=== PATIENT | female | born 1960 | race Caucasian/White ===

== ENCOUNTER 2017-01-29 08:43 | Day surgery (SDC) | payer MEDICAID ==
[2015-09-26 17:06] VITALS: BMI 34.7
[2017-01-29] MEDS ORDERED: Lactated Ringer's 1,000 ML IV ONE (09:17)
[2017-01-29] MEDS ORDERED: Propofol 10 mg/ml Inj (20 ML) ONE (12:12)
[2017-01-29] MEDS ORDERED: Lidocaine 2% MPF (5 ml) Inj ONE (12:13)
[2017-01-29 12:42] VITALS: TEMP 97
[2017-01-29 12:57] VITALS: BP 123/75; PULSE 66; RESP 13; O2SAT 100
== END 2017-01-29 12:58 | disposition home or self-care (01) ==
LOC: H.ENDO 08:43
PROVIDERS: ATTEND Internal Medicine Gastroenterology
DX: Z12.11 Encounter for screening for malignant neoplasm of colon (principal); E78.5 Hyperlipidemia, unspecified; I10 Essential (primary) hypertension; K64.1 Second degree hemorrhoids; K57.30 Diverticulosis of large intestine without perforation or abscess without bleeding
CPT/HCPCS: 45378; J2704; J7120

== ENCOUNTER 2017-03-24 08:48 | Emergency (ER) | payer MEDICAID ==
[2017-03-24 08:53] VITALS: TEMP 98; BMI 34.0
[2017-03-24 09:05] VITALS: RESP 18
[2017-03-24] MEDS ORDERED: Sodium Chloride 0.9% 1,000 ML IV STA ×2 (09:35→11:17)
[2017-03-24 10:05] LABS: BASO # 0.1 K/uL (0.0-0.2); BASO % 0.5 % (0.0-2.0); EOS % 0.3 % (0.0-4.0); HEMOGLOBIN 14.4 g/dL (12.0-16.0); LYMPH # 0.8 K/uL (1.0-4.3); LYMPH % 5.9 % (20.0-40.0); MEAN CELL VOLUME 91.5 fl (81.0-99.0); MEAN CORPUSCULAR HEMOGLOBIN 30.4 pg (27.0-31.0); MEAN CORPUSCULAR HGB CONC 33.2 g/dL (33.0-37.0); MEAN PLATELET VOLUME 9.1 fl (7.2-11.7); MONO # 0.8 K/uL (0.0-0.8); MONO % 5.9 % (0.0-10.0); NEUT # 12.5 K/uL (1.8-7.0); NEUT % 87.4 % (50.0-75.0); NRBC % 0.2 % (0.0-0.0); PLATELET COUNT 236 K/uL (130-400); RBC 4.73 Mil/uL (3.80-5.20); RED CELL DISTRIBUTION WIDTH 12.9 % (11.5-14.5); WHITE BLOOD COUNT 14.3 K/uL (4.8-10.8)
[2017-03-24 10:17] LABS: ALB/GLOB RATIO 1.4 (1.0-2.1); ALBUMIN 4.7 g/dL (3.5-5.0); ALT/SGPT 28 U/L (9-52); AST/SGOT 18 U/L (14-36); BLOOD UREA NITROGEN 16 mg/dl (7-17); CALCIUM 9.8 mg/dL (8.4-10.2); GFR AFRICAN-AMERICAN > 60; GFR NON-AFRICAN AMERICAN > 60; LIPASE 47 U/L (23-300)
--- NOTE | 2017-03-24 10:23 | ED PDOC ---
HPI:Nausea, Vomiting, Diarrhea Time Seen by Provider: 03/24/17 09:07 Chief Complaint (Nursing): Abdominal Pain Chief Complaint (Provider): Nausea/Vomiting/Diarrhea History Per: Patient History/Exam Limitations: no limitations Onset/Duration Of Symptoms: Hrs (since 11 PM last night) Current Symptoms Are (Timing): Still Present Additional Complaint(s): Gretchen Kemp is a 56 year old female with a history of hypertension that presents to the ED with a chief complaint of vomiting, bloody diarrhea, and a bubbling, cramping abdominal pain that she began to experience at 11 PM last night. She reports that around 4 PM yesterday, she ate a meat raisa, which "tasted weird." She states that her nephew ate it as well, and that he developed similar symptoms immediately after consuming the raisa. She denies any headache, chest pain, shortness of breath, or difficulty urinating. She states that she has not taken any medication for her symptoms. Past Medical History Reviewed: Nursing Documentation, Vital Signs Vital Signs: Last Vital Signs Temp 98 F 03/24/17 09:01 Pulse 84 03/24/17 09:01 Resp 18 03/24/17 09:01 BP 149/94 H 03/24/17 09:01 Pulse Ox 96 03/24/17 09:01 - Medical History PMH: HTN, Hypercholesterolemia - Surgical History Surgical History: - Family History Family History: States: Unknown Family Hx - Living Arrangements Living Arrangements: With Family - Social History Alcohol: None Drugs: Denies - Immunization History Hx Tetanus Toxoid Vaccination: No Hx Influenza Vaccination: No Hx Pneumococcal Vaccination: No - Home Medications Home Medications: Ambulatory Orders Medication Instructions Recorded Enalapril Maleate [Vasotec] 1 tab PO DAILY 01/29/17 Rosuvastatin Calcium [Crestor] 1 tab PO DAILY 01/29/17 amLODIPine [Norvasc] 1 tab PO DAILY 01/29/17 Ciprofloxacin HCl [Cipro] 500 mg PO BID 7 Days tab 03/24/17 Metronidazole [Flagyl] 500 mg PO TID 7 Days tablet 03/24/17 - Allergies Allergies/Adverse Reactions: Allergies Allergy/AdvReac Type Severity Reaction Status Date / Time No Known Allergies Allergy Unverified 01/29/17 09:18 Review of Systems ROS Statement: Except As Marked, All Systems Reviewed And Found Negative Cardiovascular: Negative for: Chest Pain Respiratory: Negative for: Shortness of Breath Gastrointestinal: Positive for: Vomiting, Abdominal Pain (bubbling, cramping pain, especially in lower quadrants), Diarrhea (bloody) Genitourinary Female: Negative for: Dysuria Neurological: Negative for: Headache Physical Exam - Reviewed Nursing Documentation Reviewed: Yes Vital Signs Reviewed: Yes - Physical Exam Appears: Positive for: Non-toxic, No Acute Distress Head Exam: Positive for: ATRAUMATIC, NORMOCEPHALIC Skin: Positive for: Normal Color, Warm Eye Exam: Positive for: Normal appearance, EOMI, PERRL ENT: Positive for: Normal ENT Inspection Neck: Positive for: Normal, Supple Cardiovascular/Chest: Positive for: Regular Rate, Rhythm. Negative for: Murmur Respiratory: Positive for: Normal Breath Sounds. Negative for: Wheezing Gastrointestinal/Abdominal: Positive for: Tenderness (TTP diffusely on abdomen, especially in lower quadrants b/l). Negative for: Normal Exam Back: Positive for: Normal Inspection. Negative for: L CVA Tenderness, R CVA Tenderness Rectal: Positive for: Other ((+) red spotting noted) Extremity: Positive for: Normal ROM. Negative for: Tenderness, Swelling Neurologic/Psych: Positive for: Alert, Oriented. Negative for: Motor/Sensory Deficits - Laboratory Results Result Diagrams: 03/24/17 09:50 03/24/17 09:50 Interpretation Of Abn Labs: 14.3 wbc; 3.1 k occult neg - ECG O2 Sat by Pulse Oximetry: 96 (RA) Pulse Ox Interpretation: Normal - CT Scan/US ct Other Rad Studies (CT/US): Read By Radiologist Other Rad Interpretation: colitis - Progress ED Course And Treament: 1617: Stable. AAOx3. Pain free. Tolerated PO. Ambulated with no issues. Fu with gi and pcp. Medical Decision Making Medical Decision Making: Impression: Food Poisoning Plan: * CBC * Urine Dip * Bentyl 10 mg PO * Zofran 4 mg IV * NaCl 1000 mLs at 1000 mLs/hr * Reevaluation Scribe Attestation: Documented by Melody Grimm, acting as a scribe for Deon Kerns MD. Provider Scribe Attestation: All medical record entries made by the Scribe were at my direction and personally dictated by me. I have reviewed the chart and agree that the record accurately reflects my personal performance of the history, physical exam, medical decision making, and the department course for this patient. I have also personally directed, reviewed, and agree with the discharge instructions and disposition. Disposition - Clinical Impression Clinical Impression: Colitis, Abdominal pain, Hypokalemia - Patient ED Disposition Is Patient to be Admitted: No Counseled Patient/Family Regarding: Studies Performed, Diagnosis, Need For Followup, Rx Given - Disposition Referrals: [facility] [Outside] - 03/25/17 Duke Lundberg MD [Staff Provider] - 03/25/17 Disposition: Routine/Home Disposition Time: 16:19 Condition: STABLE Additional Instructions: Return if not better in 3 days. Prescriptions: Ciprofloxacin HCl [Cipro] 500 mg PO BID 7 Days tab Metronidazole [Flagyl] 500 mg PO TID 7 Days tablet Instructions: Abdominal Pain (ED), Colitis (ED), Hypokalemia (ED) Forms: [employer] (German)
[2017-03-24] MEDS ORDERED: Potassium Chloride 20 mEq ER Tab PO ONE ×2 (11:17→11:48)
[2017-03-24 11:32] LABS: LYMPHOCYTE 5 % (20-50); MONOCYTE 6 % (0-10); NEUTROPHIL 89 % (42-75); PLATELET ESTIMATE NORMAL (NORMAL); TOTAL CELLS COUNTED 100
[2017-03-24 11:33] LABS: ANISOCYTOSIS SLIGHT; LARGE PLATELETS PRESENT; OVALOCYTES SLIGHT; TEARDROP CELLS SLIGHT
[2017-03-24] MEDS ORDERED: Iohexol 240 (50 ml) PO ONE (11:51)
[2017-03-24] MEDS ORDERED: Iohexol 240 (50 ml) ONE (12:29)
[2017-03-24] MEDS ORDERED: Sodium Chloride 0.9% 50 ML IV ONE (14:46)
[2017-03-24] MEDS ORDERED: Iohexol 300 100 ML IJ ONE (14:46)
--- NOTE | 2017-03-24 15:43 | CT ---
PROCEDURE: CT scan abdomen and pelvis dated 03/16/2017 HISTORY: Abdominal pain COMPARISON: No prior study available for comparison however correlation made with CT scan chest 03/19/2013 which imaged the upper abdomen TECHNIQUE: Contiguous helical/transaxial sections of the abdomen pelvis performed following oral and intravenous injection of approximately 95 cc Omnipaque 300 contrast material. Radiation dose: Total exam DLP = 943.14 mGy-cm. This CT exam was performed using one or more of the following dose reduction techniques: Automated exposure control, adjustment of the mA and/or kV according to patient size, and/or use of iterative reconstruction technique. FINDINGS: LOWER THORAX: Mild linear scarring changes both lung bases LIVER: Liver is mildly enlarged measuring just over 19 cm in CC dimension. Very mild diffuse fatty hepatic infiltration. Portal and splenic veins are opacified. No obvious hepatic masses or collections. GALLBLADDER AND BILE DUCTS: The gallbladder is physiologically distended. No evidence of intraluminal gallbladder calculi. PANCREAS: The pancreas appears grossly unremarkable without masses collections or calcifications. SPLEEN: Spleen exhibits normal size and attenuation pattern without mass collection or calcification. ADRENALS: No adrenal lesions. KIDNEYS AND URETERS: The kidneys demonstrates symmetric nephrograms of. There is an approximately 7 mm nonobstructing calculus upper pole right kidney. . VASCULATURE: Unremarkable. No aortic aneurysm. BOWEL: Evaluation of the bowel is somewhat limited due to incomplete opacification. There is wall thickening of the sigmoid descending and distal transverse colon consistent with a nonspecific (infectious or inflammatory) colitis. Clinical correlation recommended. APPENDIX: Normal-appearing appendix of best seen on coronal image number [id number] and axial image number [id number]. PERITONEUM: Unremarkable. No free fluid. No free air. There is a small fat containing umbilical hernia. LYMPH NODES: Multiple small nonspecific retroperitoneal lymph nodes are present. BLADDER: Urinary bladder is physiologically distended. No evidence of intraluminal urinary bladder calculi. REPRODUCTIVE: Unremarkable as visualized BONES: Minor multilevel degenerative spondylosis of the lower thoracic and lumbar spine. There are no acute compression fractures no retropulsed fragments. OTHER FINDINGS: None. IMPRESSION: Long segment segment colitis involving the sigmoid and descending and distal transverse colon. Of mild hepatomegaly. Fatty hepatic infiltration. There are multiple small nonspecific retroperitoneal lymph nodes. Nonobstructing calculus upper pole right kidney.
[2017-03-24 16:34] VITALS: BP 140/90; PULSE 81; O2SAT 98
== END 2017-03-24 16:33 | disposition home or self-care (01) ==
LOC: H.ER 08:48
DX: K52.9 Noninfective gastroenteritis and colitis, unspecified (principal); E87.6 Hypokalemia; R10.9 Unspecified abdominal pain; I10 Essential (primary) hypertension; E78.00 Pure hypercholesterolemia, unspecified
CPT/HCPCS: 74177; 80053; 83690; 85025; 96374; 99283; G0328; J2405; J7040; Q9966; Q9967